=== PATIENT | male | born 1990 | race African-American/Black ===

== ENCOUNTER 2016-07-04 08:03 | Emergency (ER) | payer MEDICARE | END 2016-07-04 10:15 | disposition home or self-care (01) | LOC: ER1 08:03 | DX: J09.X2 Influenza due to identified novel influenza A virus with other respiratory manifestations (principal) | CPT/HCPCS: 87081; 87880; 99283 ==

== ENCOUNTER 2016-08-01 06:53 | Emergency (ER) | payer MEDICARE | END 2016-08-01 08:40 | disposition home or self-care (01) | LOC: ER1 06:53 | DX: K02.9 Dental caries, unspecified (principal); R68.84 Jaw pain; F17.200 Nicotine dependence, unspecified, uncomplicated | CPT/HCPCS: 99282 ==

== ENCOUNTER 2016-10-07 08:37 | Emergency (ER) | payer MEDICARE ==
[2016-10-07 09:32] LABS: HEMOGLOBIN 13.3 gm/dl (14.0-17.5); RED BLOOD COUNT 4.54 M/UL (4.20-5.50); WHITE BLOOD COUNT 7.5 K/UL (4.5-11.0)
== END 2016-10-07 09:58 | disposition home or self-care (01) ==
LOC: ER1 08:37
PROVIDERS: Emergency Medicine
DX: K04.7 Periapical abscess without sinus (principal); K02.9 Dental caries, unspecified; D64.9 Anemia, unspecified
CPT/HCPCS: 36415; 85025; 96372; 99283; J1885